=== PATIENT | female | born 1965 | race Caucasian/White ===

== ENCOUNTER → 2018-09-28 | Outpatient (CLI) | payer BC ==
[2016-10-27 05:57] VITALS: BP 125/69
[~2018-09-28] MED LIST: HYDR-3165 PO; IOHEXOL 240 MG/ML 50ML VIAL. ONE; IOHEXOL 300 MG/ML 75 ML VIAL. IV ONE; ONDA4TAB10 SL
--- NOTE | 2018-09-28 15:48 | RAD ---
CT of the abdomen and pelvis with contrast 09/28/2018. INDICATION: Left lower quadrant pain for several weeks. Change in bowel habits. COMPARISON STUDY: CT of the abdomen and pelvis without contrast October 27, 2016. TECHNIQUE: Multidetector CT imaging of the abdomen and pelvis was performed following the administration of intravenous contrast. FINDINGS: The partially visualized lung bases demonstrate no acute abnormality. Scattered sub-5 mm hepatic hypodensities are noted which may represent small cysts or biliary hamartomas. There are too small to characterize by CT. The liver is otherwise unremarkable. Gallbladder is grossly unremarkable. Spleen is unremarkable in appearance. The adrenal glands are unremarkable in appearance. Pancreas is grossly normal in appearance. There is a 3 mm nonobstructing stone in the inferior pole the right kidney. This is stable from comparison study. There is no evidence of bowel obstruction. Mildly increased stool is noted throughout the colon. Correlate with clinical evidence of constipation. No pneumoperitoneum is identified. No free fluid is seen in the abdomen or pelvis. Prior hysterectomy is noted. No evidence of acute osseous abnormality is identified IMPRESSION: 1. No acute intra-abdominal abnormality is identified 2. Mildly increased stool throughout the colon. Correlate with clinical evidence of constipation. 3. 3 mm nonobstructing stone, inferior pole right kidney 4. Multiple sub-5 mm hepatic hypodensities, too small to characterize. Statistically these are likely benign small cysts or biliary hamartomas. CT DOSING PQRS STATEMENT: One or more of the following individualized dose reduction techniques were utilized for this examination: 1. Automated exposure control 2. Adjustment of the mA and/or kV according to patient size 3. Use of iterative reconstruction technique Electronically signed by: Gunner Cullen MD (09/28/2018 3:44 PM) [facility]
== END | disposition home or self-care (01) ==
LOC: CT 09:22
PROVIDERS: ATTEND Internal Medicine Gastroenterology
DX: K59.09 Other constipation (principal); I10 Essential (primary) hypertension
CPT/HCPCS: 74177; Q9966; Q9967

== ENCOUNTER 2019-09-16 18:07 | Emergency (ER) | payer BC ==
[~2019-09-16] VITALS: Ht 167.6 cm; Wt 73.0 kg
[~2019-09-16 18:07] MED LIST changes: -IOHEXOL 240 MG/ML 50ML VIAL. ONE; -IOHEXOL 300 MG/ML 75 ML VIAL. IV ONE
[2019-09-16 18:10] VITALS: BP 114/62
[2019-09-16] MEDS ORDERED: IV NORMAL SALINE 1,000ML 1,000 ML IV ONE (18:15)
--- NOTE | 2019-09-16 18:40 | PHYS DOC ---
Past History Past Medical History: Arthritis, Hypertension Past Surgical History: Hysterectomy, Tonsillectomy Alcohol Use: None Drug Use: None Adult General Chief Complaint Chief Complaint: FEVER HPI HPI 54-year-old female presents with fever and dysuria. The patient was diagnosed with UTI by her primary physician 4 days ago. She was placed on Bactrim. The patient is not feeling any better. She denies urinary frequency, dysuria, and feels like there are granules in her urine. He is not sure she is passing kidney stones or was having. She did have a fever up to 100.8. She's been taking Tylenol on a regular basis. Her last dose was 90 minutes ago. She has lower abdominal cramping that is moderate in intensity. Review of Systems Review of Systems Constitutional: Fever[] Eyes: Denies change in visual acuity, redness, or eye pain [] HENT: Denies nasal congestion or sore throat [] Respiratory: Denies cough or shortness of breath [] Cardiovascular: No additional information not addressed in HPI [] GI: Lower abdominal pain, nausea. Denies vomiting, bloody stools or diarrhea [] : Dysuria and hematuria [] Musculoskeletal: Denies back pain or joint pain [] Integument: Denies rash or skin lesions [] Neurologic: Denies headache, focal weakness or sensory changes [] Endocrine: Denies polyuria or polydipsia [] All other systems were reviewed and found to be within normal limits, except as documented in this note. Current Medications Current Medications Current Medications Medications (Trade) Dose Ordered Sig/Viola Start Time Stop Time Status Last Admin Dose Admin Sodium Chloride 1,000 ml @ 1,000 mls/hr 1X ONCE 09/16/19 18:15 09/16/19 19:14 09/16/19 18:29 1,000 MLS/HR Allergies Allergies Allergies Coded Allergies Type Severity Reaction Last Updated Verified erythromycin base Allergy Unknown vomiting 10/27/16 Yes Physical Exam Physical Exam Constitutional: Well developed, well nourished, no acute distress, non-toxic appearance. [] HENT: Normocephalic, atraumatic, bilateral external ears normal, oropharynx moist, no oral exudates, nose normal. [] Eyes: PERRLA, EOMI, conjunctiva normal, no discharge. [] Neck: Normal range of motion, no tenderness, supple, no stridor. [] Cardiovascular:Heart rate regular rhythm, no murmur [] Lungs & Thorax: Bilateral breath sounds clear to auscultation [] Abdomen: Bowel sounds normal, soft, suprapubic tenderness, no masses, no pulsatile masses. [] Skin: Warm, dry, no erythema, no rash. [] Back: No tenderness, no CVA tenderness. [] Extremities: No tenderness, no cyanosis, no clubbing, ROM intact, no edema. [] Neurologic: Alert and oriented X 3, normal motor function, normal sensory function, no focal deficits noted. [] Psychologic: Affect normal, judgement normal, mood normal. [] EKG EKG [] Radiology/Procedures Radiology/Procedures [] Impressions: CT ABDOMEN PELVIS WO CONTRAST INDICATION: Fever, abdominal pain, kidney stone, recent UTI EXAM: Noncontrast CT of the abdomen and pelvis. Coronal and sagittal reformatted images were performed. PQRS compliance statement: One or more of the following individualized dose reduction techniques were utilized for this examination: 1. Automated exposure control 2. Adjustment of the mA and/or kV according to patient size 3. Use of iterative reconstruction technique COMPARISON: 09/28/2018 FINDINGS: No free air, free fluid, or fluid collection. Lower chest: The visualized lower lungs are aerated. No pleural or pericardial effusion. ABDOMEN: Liver: The noncontrast liver is homogeneous in attenuation. Gallbladder and biliary: Normal gallbladder without radiopaque stone. Normal caliber bile ducts. Spleen: Normal spleen. Pancreas: The noncontrast pancreas is homogeneous in attenuation without peripancreatic inflammatory changes. Adrenal glands: Normal adrenal glands. Kidneys and ureters: Nonobstructive right renal calculus measuring 5 mm. No hydronephrosis. GI tract: The stomach is decompressed and poorly evaluated. Normal caliber small bowel and colon. Normal appendix. Moderate colonic stool burden. Vascular structures: Normal caliber abdominal aorta. Lymph nodes: No lymphadenopathy in the abdomen or pelvis. PELVIS: Genitourinary system: Normal bladder. Hysterectomy. SKELETAL STRUCTURES AND SOFT TISSUES: No fracture or destructive lesion in the visualized skeleton. IMPRESSION: Nonobstructive right renal calculus measuring 5 mm. No hydronephrosis. Electronically signed by: Maryjane Thomas MD (09/16/2019 7:51 PM) [facility] DICTATED AND SIGNED BY: MARYJANE THOMAS MD DATE: 09/16/191950 CC: GONZÁLEZ ARCEO DO; KIMBERLEE MCDONALD ~ Course & Med Decision Making Course & Med Decision Making Pertinent Labs and Imaging studies reviewed. (See chart for details) The patient continues to have urinary tract infection. Culture and susceptibility is not available. I will treat her with 1 g of Rocephin in the ED and syndrome with a prescription for levofloxacin for the next 7 days. I have also given the patient 1 [place] 7.5 for pain and an additional 500 mg of Tylenol for her fever. She like to go home. She is stable for discharge at this time. [] Dragon Disclaimer Dragon Disclaimer This electronic medical record was generated, in whole or in part, using a voice recognition dictation system. Departure Departure: Impression: Primary Impression: Nephrolithiasis Additional Impression: Pyelonephritis Disposition: 01 HOME, SELF-CARE Condition: STABLE Referrals: KIMBERLEE MCDONALD (PCP) Patient Instructions: Pyelonephritis, Adult, [id number] Scripts Levofloxacin (LEVOFLOXACIN) 750 Mg Tablet 1 TAB PO DAILY for UTI, #7 TAB Prov: GONZÁLEZ ARCEO DO 09/16/19 Problem Qualifiers GONZÁLEZ ARCEO DO Sep 16, 2019 18:40
[2019-09-16 18:50] LABS: BASO # 0.1 x10^3/uL (0.0-0.2); BASO % 1 % (0-3); EOS # 0.1 x10^3/uL (0.0-0.7); EOS % 1 % (0-3); HEMATOCRIT 35.2 % (36.0-47.0); HEMOGLOBIN 11.4 g/dL (12.0-15.5); LYMPH # 1.9 x10^3/uL (1.0-4.8); LYMPH % 13 % (24-48); MEAN CORPUSCULAR HEMOGLOBIN 27 pg (25-35); MEAN CORPUSCULAR HGB CONC 32 g/dL (31-37); MEAN CORPUSCULAR VOLUME 84 fL (79-100); MONO % 14 % (0-9); NEUT # 10.2 x10^3uL (1.8-7.7); NEUT % 71 % (31-73); PLATELET COUNT 253 x10^3/uL (140-400); RED BLOOD COUNT 4.19 x10^6/uL (3.50-5.40); WHITE BLOOD COUNT 14.3 x10^3/uL (4.0-11.0)
[2019-09-16 19:07] LABS: BACTERIA,URINE MOD /HPF (0-FEW); BILIRUBIN,URINE NEG (NEG); CLARITY,URINE CLOUDY; COLOR,URINE STRAW; GLUCOSE,URINE NEG (NEG); NITRITE,URINE NEG (NEG); RBC,URINE 20-40 /HPF (0-2); SQUAMOUS EPITHELIAL CELL,UR FEW /LPF; UROBILINOGEN,URINE 0.2 mg/dL (0.2 mg/dL); WBC,URINE >40 /HPF (0-4)
[2019-09-16 19:34] LABS: ALBUMIN 2.9 g/dL (3.4-5.0); ALBUMIN/GLOBULIN RATIO 0.8 (1.0-1.7); CREATININE 0.9 mg/dL (0.6-1.0); POTASSIUM 3.7 mmol/L (3.5-5.1); TOTAL BILIRUBIN 0.4 mg/dL (0.2-1.0); TOTAL PROTEIN 6.7 g/dL (6.4-8.2)
[2019-09-16] MEDS ORDERED: cefTRIAXone SODIUM 1 GM VIAL ONE (19:38)
[2019-09-16] MEDS ORDERED: IV NORMAL SALINE 50ML 50 ML ONE (19:38)
--- NOTE | 2019-09-16 19:54 | RAD ---
CT ABDOMEN PELVIS WO CONTRAST INDICATION: Fever, abdominal pain, kidney stone, recent UTI EXAM: Noncontrast CT of the abdomen and pelvis. Coronal and sagittal reformatted images were performed. PQRS compliance statement: One or more of the following individualized dose reduction techniques were utilized for this examination: 1. Automated exposure control 2. Adjustment of the mA and/or kV according to patient size 3. Use of iterative reconstruction technique COMPARISON: 09/28/2018 FINDINGS: No free air, free fluid, or fluid collection. Lower chest: The visualized lower lungs are aerated. No pleural or pericardial effusion. ABDOMEN: Liver: The noncontrast liver is homogeneous in attenuation. Gallbladder and biliary: Normal gallbladder without radiopaque stone. Normal caliber bile ducts. Spleen: Normal spleen. Pancreas: The noncontrast pancreas is homogeneous in attenuation without peripancreatic inflammatory changes. Adrenal glands: Normal adrenal glands. Kidneys and ureters: Nonobstructive right renal calculus measuring 5 mm. No hydronephrosis. GI tract: The stomach is decompressed and poorly evaluated. Normal caliber small bowel and colon. Normal appendix. Moderate colonic stool burden. Vascular structures: Normal caliber abdominal aorta. Lymph nodes: No lymphadenopathy in the abdomen or pelvis. PELVIS: Genitourinary system: Normal bladder. Hysterectomy. SKELETAL STRUCTURES AND SOFT TISSUES: No fracture or destructive lesion in the visualized skeleton. IMPRESSION: Nonobstructive right renal calculus measuring 5 mm. No hydronephrosis. Electronically signed by: Adarsh Flores MD (09/16/2019 7:51 PM) [facility]
[2019-09-16] MEDS ORDERED: LEVO750T5 PO (20:05)
[2019-09-16] MEDS ORDERED: ACETAMINOPHEN 500 MG TABLET PO ONE (20:15)
[2019-09-16] MEDS ORDERED: HYDROcodone/APAP 7.5/325MG 1 TAB TABLET PO ONE (20:15)
[2019-09-16] MEDS ORDERED: ONDANSETRON PF 4 MG/2 ML VIAL. IVP ONE (20:15)
== END 2019-09-16 21:12 | disposition home or self-care (01) ==
LOC: ER 18:07
DX: N20.0 Calculus of kidney (principal); M19.90 Unspecified osteoarthritis, unspecified site; I10 Essential (primary) hypertension; Z90.710 Acquired absence of both cervix and uterus; Z88.1 Allergy status to other antibiotic agents
CPT/HCPCS: 36415; 74176; 80053; 81001; 85025; 87086; 87186; 96365; 96366; 96375; 99285; J0696; J2405; J7030